=== PATIENT | male | born 1980 | race Caucasian/White ===

== ENCOUNTER 2017-12-28 14:00 | Outpatient (RCR) | payer SELFPAY | END 2018-01-02 | LOC: PT 14:00 | PROVIDERS: ATTEND Neurological Surgery | DX: M51.17 Intervertebral disc disorders with radiculopathy, lumbosacral region (principal); M62.81 Muscle weakness (generalized); R26.9 Unspecified abnormalities of gait and mobility ==

== ENCOUNTER 2018-01-11 14:11 | Outpatient (RCR) | payer SELFPAY | END 2018-02-01 | LOC: PT 14:11 | PROVIDERS: ATTEND Neurological Surgery | DX: M51.17 Intervertebral disc disorders with radiculopathy, lumbosacral region (principal); M62.81 Muscle weakness (generalized); R26.9 Unspecified abnormalities of gait and mobility ==